=== PATIENT | male | born 1990 | race Caucasian/White ===

== ENCOUNTER → 2016-09-01 | Day surgery (SDC) | payer OTHER ==
[~2016-09-01] VITALS: Ht 177.8 cm; Wt 65.0 kg
[2016-09-01 08:49] LABS: BASOPHIL 0.6 % (0-2); EOSINOPHIL 4.8 % (0-5); HGB 15.4 g/dl (13.2-18.0); LYMPHOCYTE 41.6 % (15-48); MCH 31.1 pg (25.0-31.0); MCV 88.9 fL (78.0-100.0); MONOCYTE 12.1 % (0-12); MPV 10.8 fL (6.0-9.5); NEUTROPHIL 40.9 % (41-80); PLT 279 K/uL (150-400); RBC 4.95 M/uL (4.70-6.00); RDW 13.7 % (11.5-14.0)
== END | disposition home or self-care (01) ==
LOC: FAS 08:34
PROVIDERS: Oral & Maxillofacial Surgery
DX: K02.9 Dental caries, unspecified (principal); K01.1 Impacted teeth; Z88.1 Allergy status to other antibiotic agents; F17.210 Nicotine dependence, cigarettes, uncomplicated
CPT/HCPCS: 36415; 85025; J1100; J2405; J2704; J2710; J3010